=== PATIENT | male | born 1965 | race Caucasian/White ===

== ENCOUNTER 2019-04-16 08:54 | Emergency (ER) | payer SELFPAY, MEDICAID ==
[2019-04-16 10:18] LABS: URINE BLOOD (Dip) POC 2+ (NEGATIVE); URINE GLUCOSE (Dip) POC Negative (NEGATIVE); URINE KETONES (Dip) POC Negative (NEGATIVE); URINE LEUKOCYTE EST (Dip) POC 2+ (NEGATIVE); URINE NITRITE (Dip) POC Positive (NEGATIVE); URINE TOTAL PROTEIN POC 1+ (NEGATIVE)
[2019-04-16] MEDS ORDERED: CEFTRIAXONE 1 GM/50 ML (PMX) 50 ML IVPB (11:30)
[2019-04-16] MEDS: CEFTRIAXONE 1 GM INJ IM (11:47)
[2019-04-16] MEDS: LIDOCAINE /PF 2% 10 ML AMPUL IJ (11:48)
== END 2019-04-16 12:04 | disposition home or self-care (01) ==
LOC: FTE 12:04
DX: S39.94XA Unspecified injury of external genitals, initial encounter (principal); F17.210 Nicotine dependence, cigarettes, uncomplicated; X58.XXXA Exposure to other specified factors, initial encounter; Y92.9 Unspecified place or not applicable
CPT/HCPCS: 76870; 81003; 96372; 99285-25